=== PATIENT | female | born 1960 | race Caucasian/White ===

== ENCOUNTER 2023-01-02 08:25 | Emergency (ER) | payer OTHER ==
[~2023-01-02] VITALS: Ht 152.4 cm; Wt 45.8 kg
--- NOTE | 2023-01-02 08:32 | NUR ---
62 y/o female, c/o right foot pain, radiates to right knee for 1 week. 09/05 pain at this time, unable to ambulate, came in own wheelchair. pmh: glioblastoma, stroke 2011, epilepsy, brain surgery 2011, mood disorder, hemiplegia 2011 nka med: lyrica 75mg, duloxetine, risperidone, keppra
[2023-01-02 08:40] VITALS: BP 101/62
--- NOTE | 2023-01-02 09:02 | NUR ---
PT TAKEN TO ER BED 9
[2023-01-02 09:29] LABS: BASOPHILS # (AUTO) 0.2 K/uL (0.00-0.22); BASOPHILS % (AUTO) 2.4 % (0.0-2.0); EOSINOPHILS # (AUTO) 0.6 K/uL (0-0.4); EOSINOPHILS % (AUTO) 8.1 % (0.0-4.0); HEMATOCRIT 38.8 % (36-48); HEMOGLOBIN 12.8 g/dL (12.0-16.0); LYMPHOCYTES # (AUTO) 1.5 K/uL (2.5-16.5); MEAN CORPUSCULAR HEMOGLOBIN 25 pg (27-31); MEAN CORPUSCULAR HGB CONC 33 g/dL (33-37); MEAN CORPUSCULAR VOLUME 76.6 fL (80-94); MONOCYTES # (AUTO) 0.6 K/uL (0.8-1.0); MONOCYTES % (AUTO) 8.3 % (1.7-9.3); NEUTROPHILS # (AUTO) 4.7 K/uL (1.8-7.7); NEUTROPHILS % (AUTO) 61.2 % (42.2-75.2); PLATELET COUNT (AUTO) 411 K/uL (140-450); RED BLOOD CELL COUNT(AUTO) 5.06 MIL/uL (4.20-5.40); RED CELL DISTRIBUTION WIDTH 14.1 % (11.6-13.7); WHITE BLOOD COUNT (AUTO) 7.7 K/uL (4.8-10.8)
--- NOTE | 2023-01-02 09:29 | NUR ---
PT TO RADIOLOGY VIA LISA
--- NOTE | 2023-01-02 09:55 | NUR ---
62F presents to ED with c/o chronic right leg pain worsening in last 5 days. Pt reports a constant, aching like, 9/10 pain to right knee radiating to right foot. Pt denies recent trauma/injury, or use of meds for pain. Pt changed into gown and placed on bedside monitor, bed set to lowest position, side rails x2.
[2023-01-02 09:56] LABS: ALBUMIN 2.9 g/dL (3.4-5.0); ANION GAP 4.9 (8-16); CARBON DIOXIDE 27.9 mmol/L (21-32); POTASSIUM 3.8 mmol/L (3.5-5.1); TOTAL BILIRUBIN 0.2 mg/dL (0.0-1.0)
--- NOTE | 2023-01-02 12:00 | NUR ---
PER [facility], PT'S , REPORTS PT HAS BEEN EXPERIECING SEVERE PAIN TO RIGHT ABD, PAIN TO RIGHT LEG IS REPORTED TO BE ON GOING NEUROPATHIC PAIN. [facility] REPORTS CAREGIVER HAS NOTED EPISODES OF ELEVATED RESPIRATIONS AND COUGH.
[2023-01-02] MEDS ORDERED: ACET-8905 PO (13:33)
[2023-01-02 13:40] VITALS: BP 103/66
--- NOTE | 2023-01-02 13:40 | NUR ---
Patient discharged with v/s stable. Written and verbal after care instructions PLEURAL EFFUSION AND LUNG CANCER given and explained. Patient alert, oriented and verbalized understanding of instructions. Wheel Chair Assisted with by caregiver. All questions addressed prior to discharge. ID band removed. Patient advised to follow up with PMD. Rx of HYDROCODONE/ACETAMINOPHEN given. Patient educated on indication of medication including possible reaction and side effects. Opportunity to ask questions provided and answered.
== END 2023-01-02 13:40 | disposition home or self-care (01) ==
LOC: MED 08:25
DX: J98.4 Other disorders of lung (principal); R10.11 Right upper quadrant pain; R06.02 Shortness of breath; Z79.899 Other long term (current) drug therapy
CPT/HCPCS: 36415; 71045; 74176; 76705; 80053; 83880; 84484; 85025; 93005; 99285; Q0092